=== PATIENT | female | born 1990 | race Caucasian/White ===

== ENCOUNTER 2018-09-07 10:29 | Emergency (ER) | payer MEDICAID ==
[~2018-09-07] VITALS: Ht 175.3 cm; Wt 58.1 kg
[2018-09-07] MEDS ORDERED: BENADRYL25 MG ORAL (10:40)
[2018-09-07] MEDS ORDERED: HALOPERIDOL0.5 MG ORAL (10:40)
[2018-09-07] MEDS ORDERED: ATARAX25 MG ORAL (10:40)
--- NOTE | 2018-09-07 10:50 | NUR ---
ED Nurse Note: Patient brought in to ER by ambulance from home due to general weakness. pt aao x3 and fatigued. calm and follows commands. skin clean and intact but pale. per pt, she came out of intermediate yesterday and weakness noticed when she woke up this morning so she called 911.
[2018-09-07 10:57] VITALS: BP 141/68
[2018-09-07 11:04] LABS: APPEARANCE,URINE SLIGHTLY CLOUDY; BILIRUBIN, URINE NEGATIVE (NEGATIVE); GLUCOSE, URINE (UA) NEGATIVE (NEGATIVE); KETONES,URINE NEGATIVE (NEGATIVE); LEUKOCYTE ESTERASE ,URINE 2+ (NEGATIVE); NITRITE,URINE NEGATIVE (NEGATIVE); PH,URINE 6.5 (4.5-8.0); PROTEIN,URINE NEGATIVE (NEGATIVE); UROBILINOGEN,URINE NORMAL MG/DL (0.0-1.0)
[2018-09-07 11:05] LABS: BASOPHILS % (AUTO) 1.2 % (0.0-2.0); HEMATOCRIT 38.6 % (37.0-47.0); HEMOGLOBIN 12.8 G/DL (12.0-16.0); LYMPHOCYTES % (AUTO) 28.4 % (20.0-45.0); MEAN CORPUSCULAR VOLUME 79 FL (80-99); MONOCYTES % (AUTO) 7.8 % (1.0-10.0); NEUTROPHILS % (AUTO) 60.6 % (45.0-75.0); PLATELET COUNT 256 K/UL (150-450); RED BLOOD COUNT 4.89 M/UL (4.20-5.40); RED CELL DISTRIBUTION WIDTH 15.6 % (11.6-14.8); WHITE BLOOD COUNT 8.1 K/UL (4.8-10.8)
[2018-09-07 11:08] LABS: COLOR,URINE YELLOW
--- NOTE | 2018-09-07 11:16 | Emergency Room Report ---
History of Present Illness General Chief Complaint: Generalized Weakness Source: Patient Present Illness HPI Patient presents by paramedics for reports of general weakness patient states that she has been having difficulty with her speech feels very weak Has difficulty standing because of the weakness [facility] patient presents with medications that include 50 mg Benadryl, and Haldol Patient reports sensation of feeling short of breath as well Denies any vomiting or diarrhea denies any posterior neck pain denies any fevers or chills Patient was brought from home by paramedics Allergies: Coded Allergies: No Known Allergies (Unverified , 09/07/18) Patient History Past Medical History: see triage record Pertinent Family History: none Last Menstrual Period: 08/26/18 Now: No Reviewed Nursing Documentation: PMH: Agreed; PSxH: Agreed Review of Systems All Other Systems: negative except mentioned in HPI Physical Exam Vital Signs Date Time Temp Pulse Resp B/P (MAP) Pulse Ox O2 Delivery O2 Flow Rate FiO2 09/07/18 10:19 97.9 96 16 100 Room Air 09/07/18 10:57 141/68 Sp02 EP Interpretation: reviewed, normal General Appearance: mild distress - Mildly anxious Head: normocephalic, atraumatic Eyes: bilateral eye PERRL, bilateral eye EOMI ENT: normal pharynx Neck: supple Respiratory: lungs clear, no respiratory distress, no retraction Cardiovascular #1: regular rate, rhythm Gastrointestinal: soft, no mass Musculoskeletal: normal inspection, other - Patient is mildly tremulous appears uneasy no obvious focal deficit Neurologic: alert, responsive Psychiatric: anxious Skin: normal color, no rash Lymphatic: no adenopathy Medical Decision Making Diagnostic Impression: Primary Impression: Episode of generalized weakness Additional Impressions: Medication reaction Dystonic drug reaction ER Course Given the patient's history and presentation multiple differentials and consideration including but not limited to electrolyte pathology, infectious neurological medication type reaction patient's QT is somewhat prolonged given the patient's intake of Haldol this is concerning Also concerning regarding the amount of other medication has been taken patient requires further inpatient care Does not report any homicidal or suicidal thoughts patient is concerned medically regarding what is going on at this time requires admission for further care , Labs Test 09/07/18 10:50 White Blood Count 8.1 K/UL (4.8-10.8) Red Blood Count 4.89 M/UL (4.20-5.40) Hemoglobin 12.8 G/DL (12.0-16.0) Hematocrit 38.6 % (37.0-47.0) Mean Corpuscular Volume 79 FL (80-99) Mean Corpuscular Hemoglobin 26.2 PG (27.0-31.0) Mean Corpuscular Hemoglobin Concent 33.2 G/DL (32.0-36.0) Red Cell Distribution Width 15.6 % (11.6-14.8) Platelet Count 256 K/UL (150-450) Mean Platelet Volume 6.8 FL (6.5-10.1) Neutrophils (%) (Auto) 60.6 % (45.0-75.0) Lymphocytes (%) (Auto) 28.4 % (20.0-45.0) Monocytes (%) (Auto) 7.8 % (1.0-10.0) Eosinophils (%) (Auto) 2.0 % (0.0-3.0) Basophils (%) (Auto) 1.2 % (0.0-2.0) Urine Color Yellow Urine Appearance Slightly cloudy Urine pH 6.5 (4.5-8.0) Urine Specific [place] 1.015 (1.005-1.035) Urine Protein Negative (NEGATIVE) Urine Glucose (UA) Negative (NEGATIVE) Urine Ketones Negative (NEGATIVE) Urine Blood Negative (NEGATIVE) Urine Nitrite Negative (NEGATIVE) Urine Bilirubin Negative (NEGATIVE) Urine Urobilinogen Normal MG/DL (0.0-1.0) Urine Leukocyte Esterase 2+ (NEGATIVE) Urine RBC 0-2 /HPF (0 - 2) Urine WBC 5-10 /HPF (0 - 2) Urine Squamous Epithelial Cells Moderate /LPF (NONE/OCC) Urine Amorphous Sediment Few /LPF (NONE) Urine Bacteria Few /HPF (NONE) Urine HCG, Qualitative Negative (NEGATIVE) Sodium Level 139 MMOL/L (136-145) Potassium Level 4.2 MMOL/L (3.5-5.1) Chloride Level 103 MMOL/L (98-107) Carbon Dioxide Level 26 MMOL/L (21-32) Anion Gap 10 mmol/L (5-15) Blood Urea Nitrogen 13 mg/dL (7-18) Creatinine 1.0 MG/DL (0.55-1.30) Estimat Glomerular Filtration Rate > 60 mL/min (>60) Glucose Level 113 MG/DL (74-106) Calcium Level 9.1 MG/DL (8.5-10.1) Lipase 209 U/L (73-393) Salicylates Level 1.0 ug/mL (2.8-20) Urine Opiates Screen Negative (NEGATIVE) Acetaminophen Level < 2 MCG/ML (10-30) Urine Barbiturates Screen Negative (NEGATIVE) Phencyclidine (PCP) Screen Negative (NEGATIVE) Urine Amphetamines Screen Positive (NEGATIVE) Urine Benzodiazepines Screen Negative (NEGATIVE) Urine Cocaine Screen Negative (NEGATIVE) Urine Marijuana (THC) Screen Negative (NEGATIVE) Serum Alcohol < 3 mg/dL EKG Diagnostic Results Rate: normal Rhythm: NSR ST Segments: other - Prolonged QTC Rhythm Strip Diag. Results EP Interpretation: yes Rate: 70 Rhythm: NSR, no PVC's, no ectopy Chest X-Ray Diagnostic Results Chest X-Ray Diagnostic Results : Chest X-Ray Ordered: Yes # of Views/Limited/Complete: 1 View Indication: Chest Pain EP Interpretation: Yes Interpretation: no consolidation, no effusion, no pneumothorax Impression: No acute disease Electronically Signed by: Ez Galarza DO Last Vital Signs Date Time Temp Pulse Resp B/P (MAP) Pulse Ox O2 Delivery O2 Flow Rate FiO2 09/07/18 10:57 97.9 97 16 141/68 100 Room Air Status: improved Disposition: XFER SHT-TRM HOSP Condition: Improved Ez Galarza DO September 07, 2018 11:16
[2018-09-07 11:17] LABS: ANION GAP 10 mmol/L (5-15); BLOOD UREA NITROGEN 13 mg/dL (7-18); CALCIUM 9.1 MG/DL (8.5-10.1); CARBON DIOXIDE 26 MMOL/L (21-32); CHLORIDE 103 MMOL/L (98-107); POTASSIUM 4.2 MMOL/L (3.5-5.1); SODIUM 139 MMOL/L (136-145)
--- NOTE | 2018-09-07 11:49 | Diagnostic Imaging Report ---
EXAM: XR Chest, 1 View CLINICAL HISTORY: Shortness of breath TECHNIQUE: Frontal view of the chest. COMPARISON: No relevant prior studies available. FINDINGS: Lungs: Unremarkable. The lungs appear clear. No focal consolidation. Pleural space: Unremarkable. The costophrenic angles are sharp. No visible pneumothorax. Heart: Unremarkable. No cardiomegaly. Mediastinum: Unremarkable. Bones/joints: Unremarkable. IMPRESSION: No acute findings.
--- NOTE | 2018-09-07 12:21 | NUR ---
ED Nurse Note: Attempted to give report. no answer. will call again.
--- NOTE | 2018-09-07 12:29 | NUR ---
ED Nurse Note: Attempted to give report again. no answer. will call again.
--- NOTE | 2018-09-07 12:51 | NUR ---
ED Nurse Note: Transportation arrived and report given to EMT.
--- NOTE | 2018-09-07 12:53 | NUR ---
ED Nurse Note: Attempted to give report again. no answer. will call again.
--- NOTE | 2018-09-07 12:56 | NUR ---
ED Nurse Note: attempted to give report and no answer again. requested to transfer to industrial chemicals supervisor since transportation is here already. dusting and brushing machine operator transferred the call to industrial chemicals supervisor and no answer. will attempt again. and EMT was informed that nurse tried to give report multiple times and has not been able to get contact with anyone.
[2018-09-07 12:57] VITALS: BP 138/77
--- NOTE | 2018-09-07 12:59 | NUR ---
ED Nurse Note: pt left department with 2 hl7 developer in stable condition.
== END 2018-09-07 12:59 | disposition short-term general hospital (02) ==
LOC: EDBD 10:29 → EMR 11:15
DX: R53.1 Weakness (principal); T50.905A Adverse effect of unspecified drugs, medicaments and biological substances, initial encounter; Y92.9 Unspecified place or not applicable; G24.09 Other drug induced dystonia; R06.02 Shortness of breath
CPT/HCPCS: 36415; 71045; 80048; 80307; 80329; 81003; 81025; 83690; 85025; 93005; 96360; 99284

== ENCOUNTER 2019-03-25 05:03 | Emergency (ER) | payer MEDICAID ==
[~2019-03-25] VITALS: Ht 170.2 cm; Wt 72.6 kg
[~2019-03-25 05:03] MED LIST: ATARAX25 MG ORAL; BENADRYL25 MG ORAL; HALOPERIDOL0.5 MG ORAL
--- NOTE | 2019-03-25 05:25 | NUR ---
ED Nurse Note: Recieved pt IBA from home,here with c/o left flank pain, thinks is kidney infection and states is about 20 weeks , pt denies bleeding or any vaginal discharge, mild nausea no vomiting, denies chest pain, sob or any other complaints or discomforts, pt assisted to gowning which she refuses and urine sample collected, will resume care as ordered and continue to closely monitor.
[2019-03-25 05:27] LABS: APPEARANCE,URINE CLOUDY; BILIRUBIN, URINE NEGATIVE (NEGATIVE); COLOR,URINE PALE YELLOW; GLUCOSE, URINE (UA) NEGATIVE (NEGATIVE); KETONES,URINE 3+ (NEGATIVE); LEUKOCYTE ESTERASE ,URINE 3+ (NEGATIVE); NITRITE,URINE POSITIVE (NEGATIVE); PH,URINE 5 (4.5-8.0); PROTEIN,URINE 2+ (NEGATIVE); UROBILINOGEN,URINE NORMAL MG/DL (0.0-1.0)
[2019-03-25] MEDS ORDERED: Acetaminophen 500mg (ES) tab ORAL ONE (05:30)
[2019-03-25 05:35] LABS: HEMOGLOBIN 11.9 G/DL (12.0-16.0); MEAN CORPUSCULAR VOLUME 87 FL (80-99); PLATELET COUNT 232 K/UL (150-450); RED BLOOD COUNT 4.15 M/UL (4.20-5.40); WHITE BLOOD COUNT 14.8 K/UL (4.8-10.8)
--- NOTE | 2019-03-25 05:38 | NUR ---
ED Nurse Note: Pt being taken down to imaging for ultrasound via wheelchair, pt is sleeping, IV site patent.
[2019-03-25 06:04] LABS: ANION GAP 9 mmol/L (5-15); BLOOD UREA NITROGEN 7 mg/dL (7-18); CALCIUM 8.5 MG/DL (8.5-10.1); CARBON DIOXIDE 26 MMOL/L (21-32); CHLORIDE 103 MMOL/L (98-107); CREATININE 0.7 MG/DL (0.55-1.30); POTASSIUM 2.9 MMOL/L (3.5-5.1); SODIUM 138 MMOL/L (136-145)
[2019-03-25 06:14] LABS: ALANINE AMINOTRANSFERASE 26 U/L (12-78); ALBUMIN/GLOBULIN RATIO 0.7 (1.0-2.7); ALKALINE PHOSPHATASE 70 U/L (46-116); ASPARTATE AMINO TRANSFERASE 21 U/L (15-37); BILIRUBIN,TOTAL 0.4 MG/DL (0.2-1.0)
[2019-03-25] MEDS ORDERED: cefTRIAXone 1 GM in NS 55 ML IVPB ONE (06:15)
--- NOTE | 2019-03-25 06:17 | Emergency Room Report ---
History of Present Illness General Chief Complaint: Abdominal Pain Source: Patient (Mehdi Mckee MD) Present Illness HPI 28-year-old female presents the ED for evaluation. Brought in by EMS from home. Complaining of right-sided flank pain x2 days. Thinks she has a kidney infection. Has had this previously. Pain is dull, 8 out of 10, nonradiating. Denies fevers or chills. Denies nausea or vomiting. States that she is about 20 weeks. Has not had a ultrasound yet. Has not yet received care yet. Denies vaginal bleeding or discharge. No other aggravating relieving factors. Denies any other associated symptoms (Mehdi Mckee MD) Allergies: Coded Allergies: No Known Allergies (Unverified , 09/07/18) Patient History Past Medical History: none Past Surgical History: none Pertinent Family History: none Social History: Reports: drug use; Denies: smoking, alcohol use Last Menstrual Period: october 26, 2018 Now: Yes Immunizations: UTD Reviewed Nursing Documentation: PMH: Agreed; PSxH: Agreed (Mehdi Mckee MD) Review of Systems All Other Systems: negative except mentioned in HPI (Mehdi Mckee MD) Physical Exam Vital Signs Date Time Temp Pulse Resp B/P (MAP) Pulse Ox O2 Delivery O2 Flow Rate FiO2 03/25/19 05:02 97.7 101 18 123/73 (90) 98 Room Air Sp02 EP Interpretation: reviewed, normal General Appearance: no apparent distress, alert, GCS 15, non-toxic Head: normocephalic, atraumatic Eyes: bilateral eye normal inspection, bilateral eye PERRL ENT: hearing grossly normal, normal pharynx, no angioedema, normal voice Neck: full range of motion, supple/symm/no masses Respiratory: chest non-tender, lungs clear, normal breath sounds, speaking full sentences Cardiovascular #1: regular rate, rhythm, no edema Cardiovascular #2: 2+ carotid (R), 2+ carotid (L), 2+ radial (R), 2+ radial (L) , 2+ dorsalis pedis (R), 2+ dorsalis pedis (L) Gastrointestinal: normal bowel sounds, non tender, soft, non-distended, no guarding, no rebound Rectal: deferred Genitourinary: normal inspection, CVA tenderness (R) Musculoskeletal: back normal, normal range of motion, gait/station normal, non- tender Neurologic: alert, motor strength/tone normal, oriented x3, sensory intact, responsive, speech normal Psychiatric: judgement/insight normal, memory normal, mood/affect normal, no suicidal/homicidal ideation Reflexes: 3+ bicep (R), 3+ bicep (L), 3+ tricep (R), 3+ tricep (L), 3+ knee (R) , 3+ knee (L) Lymphatic: no adenopathy (Mehdi Mckee MD) Medical Decision Making Diagnostic Impression: Primary Impression: Pyelonephritis Additional Impressions: Qualified Codes: Z3A.20 - 20 weeks gestation of Hypokalemia Labs Test 03/25/19 05:11 03/25/19 05:25 Urine Color Pale yellow Urine Appearance Cloudy Urine pH 5 (4.5-8.0) Urine Specific [place] 1.020 (1.005-1.035) Urine Protein 2+ (NEGATIVE) Urine Glucose (UA) Negative (NEGATIVE) Urine Ketones 3+ (NEGATIVE) Urine Blood 2+ (NEGATIVE) Urine Nitrite Positive (NEGATIVE) Urine Bilirubin Negative (NEGATIVE) Urine Urobilinogen Normal MG/DL (0.0-1.0) Urine Leukocyte Esterase 3+ (NEGATIVE) Urine RBC 2-4 /HPF (0 - 2) Urine WBC Tntc /HPF (0 - 2) Urine Squamous Epithelial Cells Few /LPF (NONE/OCC) Urine Bacteria Many /HPF (NONE) Urine HCG, Qualitative Positive (NEGATIVE) Urine Opiates Screen Negative (NEGATIVE) Urine Barbiturates Screen Negative (NEGATIVE) Phencyclidine (PCP) Screen Negative (NEGATIVE) Urine Amphetamines Screen Positive (NEGATIVE) Urine Benzodiazepines Screen Positive (NEGATIVE) Urine Cocaine Screen Negative (NEGATIVE) Urine Marijuana (THC) Screen Positive (NEGATIVE) White Blood Count 14.8 K/UL (4.8-10.8) Red Blood Count 4.15 M/UL (4.20-5.40) Hemoglobin 11.9 G/DL (12.0-16.0) Hematocrit 36.0 % (37.0-47.0) Mean Corpuscular Volume 87 FL (80-99) Mean Corpuscular Hemoglobin 28.7 PG (27.0-31.0) Mean Corpuscular Hemoglobin Concent 33.1 G/DL (32.0-36.0) Red Cell Distribution Width 12.0 % (11.6-14.8) Platelet Count 232 K/UL (150-450) Mean Platelet Volume 5.9 FL (6.5-10.1) Neutrophils (%) (Auto) % (45.0-75.0) Lymphocytes (%) (Auto) % (20.0-45.0) Monocytes (%) (Auto) % (1.0-10.0) Eosinophils (%) (Auto) % (0.0-3.0) Basophils (%) (Auto) % (0.0-2.0) Sodium Level 138 MMOL/L (136-145) Potassium Level 2.9 MMOL/L (3.5-5.1) Chloride Level 103 MMOL/L (98-107) Carbon Dioxide Level 26 MMOL/L (21-32) Anion Gap 9 mmol/L (5-15) Blood Urea Nitrogen 7 mg/dL (7-18) Creatinine 0.7 MG/DL (0.55-1.30) Estimat Glomerular Filtration Rate > 60 mL/min (>60) Glucose Level 94 MG/DL (74-106) Calcium Level 8.5 MG/DL (8.5-10.1) Total Bilirubin 0.4 MG/DL (0.2-1.0) Aspartate Amino Transf (AST/SGOT) 21 U/L (15-37) Alanine Aminotransferase (ALT/SGPT) 26 U/L (12-78) Alkaline Phosphatase 70 U/L (46-116) Total Protein 7.2 G/DL (6.4-8.2) Albumin 3.0 G/DL (3.4-5.0) Globulin 4.2 g/dL Albumin/Globulin Ratio 0.7 (1.0-2.7) Lipase 103 U/L (73-393) (Mehdi Mckee MD) Last Vital Signs Date Time Temp Pulse Resp B/P (MAP) Pulse Ox O2 Delivery O2 Flow Rate FiO2 03/25/19 06:03 97.7 03/25/19 05:20 101 18 Room Air 03/25/19 05:02 123/73 (90) 98 Status: improved (Mehdi Mckee MD) Reevaluation Time: 08:41 Reevaluation Impression Assumed care of the patient from Dr. Mckee approximately 7 AM. Briefly, this is a 28-year-old female who presented for 2 days of right-sided flank pain. She is 20 weeks confirmed by ultrasound at 20 weeks and 5 days with borderline oligohydramnios and normal heart rate. Concern for pyelonephritis at this time. She has received Rocephin. Labs have also returned positive for benzodiazepines, marijuana, amphetamines a as well as hypokalemia which is being repleted with IV and oral supplements. Patient will be transferred to [facility] for higher level of care as we do not have OB services past 20 weeks at our facility. Patient is in stable condition and stable for transport (Luis Hussein MD) Disposition: XFER SHT-TRM HOSP Condition: Serious Referrals: [facility],REFERRING (PCP) Mehdi Mckee MD Mar 25, 2019 06:17 Luis Hussein MD Mar 25, 2019 08:43
--- NOTE | 2019-03-25 06:30 | NUR ---
ED Nurse Note: Pt returned from imaging, sleeping, arouses easily to verbal stimuli, denies pain at this time, meds given effective, IV site intact and patent, pt is to be admitted or transferred, pt continues to refuse to gown at this time, v/s taken but refuses continuous monitoring, does not want to take off MD magui aware and states ok, new med orders given, will resume care as ordered and continue to closely montior.
--- NOTE | 2019-03-25 07:08 | NUR ---
HAND-OFF: Report given to HOMERO Serrano.
--- NOTE | 2019-03-25 07:10 | NUR ---
ED Nurse Note: Received patient in bed, patient is easily arousable, patient on a chief librarian circulation department, patient declines to be on a hospital gown, IV site intact, patent, infusing medication as ordered.
--- NOTE | 2019-03-25 07:16 | Diagnostic Imaging Report ---
Indication: Abdominal pain, right flank pain for 48 hours Technique: Transabdominal images of the uterus and fetus Comparison: none Findings: There is a single live intrauterine . This demonstrates positive heart activity, heart rate 159 bpm. There is an anterior fundal placenta, which clears the internal cervical os. The cervix is closed. Amniotic fluid index 8 cm. Presentation is breech Estimated gestational age by average of ultrasound measurements is 20 weeks 5 days. Estimated date of delivery is 08/07/2019. Estimate gestational age by dates is 21 weeks 3 days Only limited assessment of anatomy, due to emergent nature of the exam. No gross anomalies demonstrated. Impression: 20 week 5 day single live intrauterine Amniotic fluid index 8 cm, borderline low This agrees with the preliminary interpretation provided overnight by [facility] teleradiology service.
--- NOTE | 2019-03-25 08:15 | NUR ---
ED Nurse Note: kcl infused as ordered, patient tolerated medication without complication. IV site intact,patent, no sign of infiltration noted.
[2019-03-25 09:16] VITALS: BP 120/72
[2019-03-25 09:53] VITALS: BP 121/74
[2019-03-25 09:54] VITALS: BP 120/72
--- NOTE | 2019-03-25 09:54 | NUR ---
ED Nurse Note: patient is being transferred [facility] via [facility] with all of her belongings.
== END 2019-03-25 09:54 | disposition short-term general hospital (02) ==
LOC: EDBD 05:03 → EMR 05:23
DX: O23.02 Infections of kidney in pregnancy, second trimester (principal); E87.6 Hypokalemia; Z3A.20 20 weeks gestation of pregnancy
CPT/HCPCS: 36415; 76805; 80053; 80307; 81003; 81025; 83690; 84702; 85025; 87086; 87181; 96361; 96365; 96367; J0696; J3480; J7030; Z7502; 99285; J8499